=== PATIENT | male | born 1940 | race Hispanic/Latino ===

== ENCOUNTER 2021-10-03 09:07 | Outpatient (CLI) | payer OTHER | END 2021-10-03 09:08 | disposition home or self-care (01) | LOC: HS RAD 09:07 | PROVIDERS: ATTEND Physical Medicine & Rehabilitation | DX: J96.00 Acute respiratory failure, unspecified whether with hypoxia or hypercapnia (principal); I50.9 Heart failure, unspecified; I51.7 Cardiomegaly; J98.8 Other specified respiratory disorders | CPT/HCPCS: 71045 ==

== ENCOUNTER 2021-10-24 09:07 | Inpatient (IN) | payer MEDICARE, SELFPAY ==
[2021-10-24 10:20] LABS: Hemoglobin 11.1 g/dL (14.0-18.0); Mean Corpuscular HGB CONC 31.5 g/dL (32.0-36.0); Mean Corpuscular Hemoglobin 30.8 pg (27.0-31.0); Mean Corpuscular Volume 97.7 fL (78.0-98.0); Mean Platelet Volume 8.5 fL (7.4-10.4); Platelet Count 222 thou/uL (130-400); RBC Distribution Width 16.1 % (11.5-14.5); Red Blood Cell (RBC) Count 3.61 mill/uL (4.70-6.10); White Blood Cell (WBC) Count 19.3 thou/uL (4.8-10.8)
[2021-10-24 10:31] LABS: ALT (SGPT) 33 U/L (8-55); AST (SGOT) 46 U/L (5-34); Albumin 2.6 g/dL (3.4-4.8); Alkaline Phosphatase 401 U/L (40-110); Anion Gap 26 mmol/L (10-20); BUN (Urea Nitrogen) 55 mg/dL (8.4-25.7); Band 1 % (5-11); Bilirubin, Total 0.6 mg/dL (0.2-1.2); Calc. Creatinine Clearance 0 mL/min (70-130); Calcium 7.9 mg/dL (7.8-10.44); Carbon Dioxide 21 mmol/L (23-31); Chloride 93 mmol/L (98-107); Eosinophils 1 % (0-10); Estimated GFR 6; Globulin 2.6 g/dL (2.4-3.5); Glucose 143 mg/dL (83-110); Lipase 13 U/L (8-78); Lymphocytes 4 % (21-51); MDiff Complete? YES; Monocytes 3 % (0-10); Neutrophil 91 % (42-75); Platelet Morphology Comment Appears Adequate; Potassium 4.2 mmol/L (3.5-5.1); Protein, Total 5.2 g/dL (5.8-8.1); RBC Morphology Normal; Sodium 136 mmol/L (136-145)
[2021-10-24 11:20] LABS: CKMB 17.4 ng/mL (0-6.6)
[2021-10-24] MEDS ORDERED: Cefepime 2 GM VIAL ONE (11:45)
[2021-10-24] MEDS ORDERED: Vancomycin 1 GM/200 ML BAG ONE (11:45)
[2021-10-24] MEDS ORDERED: Aspirin Chewable 81 MG TAB ONE (11:45)
[2021-10-24 13:55] LABS: Lactic Acid 2.9 mmol/L (0.5-2.2)
[2021-10-24] MEDS ORDERED: Vancomycin 1 GM in Premix Bag 1 BAG IVPB SCH (18:12)
[2021-10-24] MEDS ORDERED: Acetaminophen 325 MG TAB PO PRN (18:12)
[2021-10-24] MEDS ORDERED: Bisacodyl 5 MG TAB PO PRN (18:12)
[2021-10-24] MEDS ORDERED: Vancomycin Sliding Scale IVPB PRN (18:19)
[2021-10-24 18:33] VITALS: BMI 21.1
[2021-10-24 19:08] LABS: Critical Call Chem Troponin I RESULT DECREASING; Troponin I 0.401 ng/mL (< 0.028)
[2021-10-24] MEDS ORDERED: Cefepime 2 GM in Sodium Chloride 0.9% 100 ML IVPB SCH (21:00)
[2021-10-24] MEDS: Midodrine HCl 5 MG TAB PO SCH (21:14)
[2021-10-24] MEDS: Heparin 5,000 UNITS/ML VIAL SC SCH (21:15)
[2021-10-24] MEDS: Atorvastatin Calcium 10 MG TAB PO SCH (21:15)
[2021-10-24 22:37] LABS: Magnesium 1.7 mg/dL (1.6-2.6)
[2021-10-24] MEDS ORDERED: Magnesium 2 GM/50 ML(in water) 2 GM in Premix Bag 1 BAG IVPB SCH (23:30)
[2021-10-25 05:03] LABS: ALT (SGPT) 29 U/L (8-55); AST (SGOT) 40 U/L (5-34); Albumin 2.3 g/dL (3.4-4.8); Alkaline Phosphatase 299 U/L (40-110); Anion Gap 22 mmol/L (10-20); BUN (Urea Nitrogen) 47 mg/dL (8.4-25.7); Bilirubin, Total 0.4 mg/dL (0.2-1.2); Calc. Creatinine Clearance 7 mL/min (70-130); Calcium 8.5 mg/dL (7.8-10.44); Carbon Dioxide 22 mmol/L (23-31); Chloride 93 mmol/L (98-107); Estimated GFR 7; Globulin 3.1 g/dL (2.4-3.5); Glucose 131 mg/dL (83-110); Potassium 3.4 mmol/L (3.5-5.1); Protein, Total 5.4 g/dL (5.8-8.1); Sodium 134 mmol/L (136-145)
[2021-10-25] MEDS ORDERED: Aspirin 325 mg Enteric Coated Tablet PO SCH (09:00)
[2021-10-25] MEDS: Amiodarone 200 MG TAB PO SCH (09:16)
[2021-10-25] MEDS: Allopurinol 100 MG TAB PO SCH (09:16)
[2021-10-25] MEDS: Finasteride 5 MG TAB PO SCH ×3 (09:16→16:33)
[2021-10-25] MEDS: Calcitriol 0.25 MCG CAP PO SCH (09:17)
[2021-10-25] MEDS: Aspirin Chewable 81 MG TAB PO SCH (09:17)
[2021-10-25] MEDS: Midodrine HCl 5 MG TAB PO SCH ×3 (09:17→21:35)
[2021-10-25] MEDS: Heparin 5,000 UNITS/ML VIAL SC SCH ×3 (09:18→21:36)
[2021-10-25] MEDS: Fludrocortisone Acetate 0.1 MG TAB PO SCH (09:18)
[2021-10-25] MEDS ORDERED: Cefepime 0.5 GM in Admixture Fee 1 EACH IVPB SCH (12:00)
[2021-10-25] MEDS: Cefepime 0.5 GM, Admixture Fee 1 EACH in Sodium Chloride 0.9% 100 ML IVPB SCH (12:13)
[2021-10-25 12:45] LABS: Vancomycin, Random 16.3 ug/mL (See Comment)
[2021-10-25] MEDS ORDERED: Dexamethasone 6 MG in Sodium Chloride 0.9% 50 ML IVPB SCH (14:25)
[2021-10-25] MEDS: Dexamethasone 4 mg/ml Vial SLOW IVP SCH (16:34)
[2021-10-25] MEDS: Atorvastatin Calcium 10 MG TAB PO SCH (21:35)
[2021-10-26 05:15] LABS: Anion Gap 22 mmol/L (10-20); BUN (Urea Nitrogen) 47 mg/dL (8.4-25.7); Calc. Creatinine Clearance 7 mL/min (70-130); Calcium 8.4 mg/dL (7.8-10.44); Carbon Dioxide 23 mmol/L (23-31); Chloride 94 mmol/L (98-107); Estimated GFR 8; Glucose 134 mg/dL (83-110); Potassium 3.7 mmol/L (3.5-5.1); Sodium 135 mmol/L (136-145)
[2021-10-26 05:18] LABS: Band 6 % (5-11); Hemoglobin 11.3 g/dL (14.0-18.0); Hypochromia SLIGHT = 6-15 cells (100X) (0-5/hpf); MDiff Complete? YES; Mean Corpuscular HGB CONC 32.4 g/dL (32.0-36.0); Mean Corpuscular Hemoglobin 31.9 pg (27.0-31.0); Mean Corpuscular Volume 98.7 fL (78.0-98.0); Mean Platelet Volume 8.6 fL (7.4-10.4); Monocytes 18 % (0-10); Neutrophil 76 % (42-75); Platelet Count 238 thou/uL (130-400); Platelet Morphology Comment Appears Adequate; RBC Distribution Width 16.1 % (11.5-14.5); Red Blood Cell (RBC) Count 3.53 mill/uL (4.70-6.10); White Blood Cell (WBC) Count 18.4 thou/uL (4.8-10.8)
[2021-10-26] MEDS: Amiodarone 200 MG TAB PO SCH (09:31)
[2021-10-26] MEDS: Calcitriol 0.25 MCG CAP PO SCH (09:31)
[2021-10-26] MEDS: Allopurinol 100 MG TAB PO SCH (09:31)
[2021-10-26] MEDS: Midodrine HCl 5 MG TAB PO SCH ×3 (09:31→21:43)
[2021-10-26] MEDS: Aspirin Chewable 81 MG TAB PO SCH (09:31)
[2021-10-26] MEDS: Finasteride 5 MG TAB PO SCH ×3 (09:31→17:08)
[2021-10-26] MEDS: Heparin 5,000 UNITS/ML VIAL SC SCH ×3 (09:32→21:43)
[2021-10-26] MEDS: Fludrocortisone Acetate 0.1 MG TAB PO SCH (09:38)
[2021-10-26 10:03] LABS: Vancomycin, Random 13.8 ug/mL (See Comment)
[2021-10-26] MEDS ORDERED: Vancomycin HCl 500 MG in Sodium Chloride 0.9% 100 ML IVPB SCH (11:00)
[2021-10-26] MEDS: Cefepime 0.5 GM, Admixture Fee 1 EACH in Sodium Chloride 0.9% 100 ML IVPB SCH (14:14)
[2021-10-26] MEDS ORDERED: Gabapentin 100 MG CAP PO SCH (14:45)
[2021-10-26] MEDS: Dexamethasone 4 mg/ml Vial SLOW IVP SCH (15:46)
[2021-10-26] MEDS: traMADol HCl 50 MG TAB PO PRN (17:08)
[2021-10-26] MEDS: Atorvastatin Calcium 10 MG TAB PO SCH (21:43)
[2021-10-27 04:52] LABS: Anion Gap 21 mmol/L (10-20); BUN (Urea Nitrogen) 47 mg/dL (8.4-25.7); Calc. Creatinine Clearance 7 mL/min (70-130); Calcium 8.4 mg/dL (7.8-10.44); Carbon Dioxide 24 mmol/L (23-31); Chloride 95 mmol/L (98-107); Estimated GFR 8; Glucose 149 mg/dL (83-110); Potassium 3.4 mmol/L (3.5-5.1); Sodium 137 mmol/L (136-145)
[2021-10-27 05:24] LABS: Anisocytosis SLIGHT = 6-15 cells (100X) (0-5/hpf); Band 1 % (5-11); Hemoglobin 11.4 g/dL (14.0-18.0); Lymphocytes 3 % (21-51); MDiff Complete? YES; Macrocytosis SLIGHT = 6-15 cells (100X) (0-5/hpf); Mean Corpuscular HGB CONC 32.2 g/dL (32.0-36.0); Mean Corpuscular Hemoglobin 32.1 pg (27.0-31.0); Mean Corpuscular Volume 99.5 fL (78.0-98.0); Mean Platelet Volume 8.6 fL (7.4-10.4); Monocytes 7 % (0-10); Neutrophil 89 % (42-75); Ovalocytes SLIGHT = 2-5 cells (100X) (0-1/hpf); Platelet Count 247 thou/uL (130-400); Platelet Morphology Comment Appears Adequate; RBC Distribution Width 16.6 % (11.5-14.5); Red Blood Cell (RBC) Count 3.55 mill/uL (4.70-6.10); White Blood Cell (WBC) Count 17.8 thou/uL (4.8-10.8)
[2021-10-27] MEDS: Finasteride 5 MG TAB PO SCH ×3 (08:36→16:26)
[2021-10-27] MEDS ORDERED: Potassium Chloride 20 MEQ TAB PO SCH (08:45)
[2021-10-27] MEDS: Midodrine HCl 5 MG TAB PO SCH ×3 (09:56→20:54)
[2021-10-27] MEDS: Fludrocortisone Acetate 0.1 MG TAB PO SCH (09:56)
[2021-10-27] MEDS: Amiodarone 200 MG TAB PO SCH (09:56)
[2021-10-27] MEDS: Aspirin Chewable 81 MG TAB PO SCH (09:56)
[2021-10-27] MEDS: Heparin 5,000 UNITS/ML VIAL SC SCH ×3 (09:57→20:54)
[2021-10-27] MEDS: Allopurinol 100 MG TAB PO SCH (09:57)
[2021-10-27] MEDS: Calcitriol 0.25 MCG CAP PO SCH (09:57)
[2021-10-27] MEDS: Gabapentin 100 MG CAP PO SCH (09:57)
[2021-10-27] MEDS: Cefepime 1 GM in Sodium Chloride 0.9% 100 ML IVPB SCH (12:28)
[2021-10-27] MEDS: traMADol HCl 50 MG TAB PO PRN (12:31)
[2021-10-27] MEDS: Dexamethasone 4 mg/ml Vial SLOW IVP SCH (16:27)
[2021-10-27] MEDS: Atorvastatin Calcium 10 MG TAB PO SCH (20:54)
[2021-10-28 05:00] LABS: Anion Gap 22 mmol/L (10-20); BUN (Urea Nitrogen) 56 mg/dL (8.4-25.7); Calc. Creatinine Clearance 7 mL/min (70-130); Calcium 8.1 mg/dL (7.8-10.44); Carbon Dioxide 18 mmol/L (23-31); Chloride 99 mmol/L (98-107); Estimated GFR 7; Glucose 183 mg/dL (83-110); Potassium 4.1 mmol/L (3.5-5.1); Sodium 135 mmol/L (136-145)
[2021-10-28 05:25] LABS: Band 5 % (5-11); Hemoglobin 11.1 g/dL (14.0-18.0); Hypochromia SLIGHT = 6-15 cells (100X) (0-5/hpf); MDiff Complete? YES; Mean Corpuscular HGB CONC 31.4 g/dL (32.0-36.0); Mean Corpuscular Hemoglobin 31.5 pg (27.0-31.0); Mean Platelet Volume 8.9 fL (7.4-10.4); Monocytes 11 % (0-10); Neutrophil 84 % (42-75); Platelet Count 237 thou/uL (130-400); Platelet Morphology Comment Appears Adequate; RBC Distribution Width 16.5 % (11.5-14.5); Red Blood Cell (RBC) Count 3.52 mill/uL (4.70-6.10); White Blood Cell (WBC) Count 19.9 thou/uL (4.8-10.8)
[2021-10-28] MEDS: Finasteride 5 MG TAB PO SCH ×3 (07:37→16:14)
[2021-10-28] MEDS: Heparin 5,000 UNITS/ML VIAL SC SCH ×3 (09:07→21:47)
[2021-10-28] MEDS: Fludrocortisone Acetate 0.1 MG TAB PO SCH (09:07)
[2021-10-28] MEDS: Amiodarone 200 MG TAB PO SCH (09:07)
[2021-10-28] MEDS: Midodrine HCl 5 MG TAB PO SCH ×3 (09:07→21:44)
[2021-10-28] MEDS: Aspirin Chewable 81 MG TAB PO SCH (09:08)
[2021-10-28] MEDS: Allopurinol 100 MG TAB PO SCH (09:08)
[2021-10-28] MEDS: Calcitriol 0.25 MCG CAP PO SCH (09:09)
[2021-10-28] MEDS: Gabapentin 100 MG CAP PO SCH (09:09)
[2021-10-28 09:57] LABS: Vancomycin, Random 17.7 ug/mL (See Comment)
[2021-10-28] MEDS ORDERED: Vancomycin HCl 250 MG in Sodium Chloride 0.9% 100 ML IVPB SCH (11:00)
[2021-10-28] MEDS: Cefepime 1 GM in Sodium Chloride 0.9% 100 ML IVPB SCH (11:43)
[2021-10-28] MEDS: Dexamethasone 4 mg/ml Vial SLOW IVP SCH (14:32)
[2021-10-28] MEDS: traMADol HCl 50 MG TAB PO PRN (16:15)
[2021-10-28] MEDS: Atorvastatin Calcium 10 MG TAB PO SCH (21:47)
[2021-10-29 04:55] LABS: Anion Gap 21 mmol/L (10-20); BUN (Urea Nitrogen) 54 mg/dL (8.4-25.7); Calc. Creatinine Clearance 7 mL/min (70-130); Calcium 8.2 mg/dL (7.8-10.44); Carbon Dioxide 22 mmol/L (23-31); Chloride 95 mmol/L (98-107); Estimated GFR 7; Glucose 157 mg/dL (83-110); Potassium 4.3 mmol/L (3.5-5.1); Sodium 134 mmol/L (136-145)
[2021-10-29 05:02] LABS: Hemoglobin 12.5 g/dL (14.0-18.0); Lymphocytes 4 % (21-51); MDiff Complete? YES; Macrocytosis SLIGHT = 6-15 cells (100X) (0-5/hpf); Mean Corpuscular HGB CONC 32.1 g/dL (32.0-36.0); Mean Corpuscular Hemoglobin 32.2 pg (27.0-31.0); Mean Platelet Volume 8.9 fL (7.4-10.4); Monocytes 9 % (0-10); Myelocyte 1 % (0-0); Neutrophil 86 % (42-75); Ovalocytes SLIGHT = 2-5 cells (100X) (0-1/hpf); Platelet Count 237 thou/uL (130-400); Platelet Morphology Comment Appears Adequate; RBC Distribution Width 16.1 % (11.5-14.5); Red Blood Cell (RBC) Count 3.88 mill/uL (4.70-6.10); Target Cells SLIGHT = 2-5 cells (100X) (0-1/hpf); Tear Drops SLIGHT = 2-5 cells (100X) (0-1/hpf); White Blood Cell (WBC) Count 17.2 thou/uL (4.8-10.8)
[2021-10-29 05:21] LABS: Free Thyroxine Index 1.54 (1.4-3.1); T4 3.7 ug/dL (4.87-11.72); Thyroid Stimulating Hormone 1.3266 uIU/mL (0.35-4.94)
[2021-10-29] MEDS: Fludrocortisone Acetate 0.1 MG TAB PO SCH (08:59)
[2021-10-29] MEDS: Heparin 5,000 UNITS/ML VIAL SC SCH ×3 (08:59→21:05)
[2021-10-29] MEDS: Amiodarone 200 MG TAB PO SCH (08:59)
[2021-10-29] MEDS ORDERED: Gabapentin 100 MG CAP PO SCH (09:00)
[2021-10-29] MEDS: Allopurinol 100 MG TAB PO SCH (11:51)
[2021-10-29] MEDS: Aspirin Chewable 81 MG TAB PO SCH (11:52)
[2021-10-29] MEDS: Midodrine HCl 5 MG TAB PO SCH ×3 (11:52→21:01)
[2021-10-29] MEDS: Calcitriol 0.25 MCG CAP PO SCH (11:53)
[2021-10-29] MEDS: Finasteride 5 MG TAB PO SCH (11:53)
[2021-10-29] MEDS: Cefepime 1 GM in Sodium Chloride 0.9% 100 ML IVPB SCH (12:51)
[2021-10-29] MEDS ORDERED: levETIRAcetam 500 MG TAB PO SCH ×2 (14:30→21:00)
[2021-10-29] MEDS: Dexamethasone 4 mg/ml Vial SLOW IVP SCH (15:26)
[2021-10-29] MEDS: Atorvastatin Calcium 10 MG TAB PO SCH (21:06)
[2021-10-29] MEDS ORDERED: Acetaminophen 650 MG Suppository PR PRN (21:53)
[2021-10-30 03:30] VITALS: BP 118/51; TEMP 98.6
[2021-10-30 06:36] LABS: Hemoglobin 12.3 g/dL (14.0-18.0); Mean Corpuscular HGB CONC 29.9 g/dL (32.0-36.0); Mean Corpuscular Hemoglobin 30.6 pg (27.0-31.0); Platelet Count 207 thou/uL (130-400); RBC Distribution Width 16.6 % (11.5-14.5); Red Blood Cell (RBC) Count 4.02 mill/uL (4.70-6.10); White Blood Cell (WBC) Count 20.4 thou/uL (4.8-10.8)
[2021-10-30 06:46] LABS: Anion Gap 27 mmol/L (10-20); BUN (Urea Nitrogen) 78 mg/dL (8.4-25.7); Calc. Creatinine Clearance 6 mL/min (70-130); Carbon Dioxide 15 mmol/L (23-31); Chloride 98 mmol/L (98-107); Estimated GFR 6; Glucose 111 mg/dL (83-110); Potassium 6.3 mmol/L (3.5-5.1); Sodium 134 mmol/L (136-145)
[2021-10-30 10:49] LABS: Band 5 % (5-11); Lymphocytes 6 % (21-51); MDiff Complete? YES; Metamyelocyte 2 % (0-0); Monocytes 2 % (0-10); Myelocyte 3 % (0-0); Neutrophil 82 % (42-75); Nucleated RBC 2 % (0); Platelet Morphology Comment Appears Adequate; Polychromasia SLIGHT = 2-3 cells (100X) (0-2/hpf)
== END 2021-10-30 09:33 | disposition expired | DRG 871 ==
LOC: ERS 09:07 → ERHOLD 11:55 → 2NO 15:22
PROVIDERS: ADMIT Family Medicine; ATTEND Family Medicine
PROC: 3E03329 Introduction of Other Anti-infective into Peripheral Vein, Percutaneous Approach (ICD-10-PCS; principal; 2021-10-24)
PROC: 8E0ZXY6 Isolation (ICD-10-PCS; 2021-10-24)
PROC: 5A1D70Z Performance of Urinary Filtration, Intermittent, Less than 6 Hours Per Day (ICD-10-PCS; 2021-10-24)
DX: A41.89 Other specified sepsis (principal); J18.9 Pneumonia, unspecified organism; N18.6 End stage renal disease; U07.1 COVID-19; I13.2 Hypertensive heart and chronic kidney disease with heart failure and with stage 5 chronic kidney disease, or end stage renal disease; N25.81 Secondary hyperparathyroidism of renal origin; E87.2 Acidosis; I24.8 Other forms of acute ischemic heart disease; I50.32 Chronic diastolic (congestive) heart failure; Z66 Do not resuscitate; I25.10 Atherosclerotic heart disease of native coronary artery without angina pectoris; I35.0 Nonrheumatic aortic (valve) stenosis; I73.9 Peripheral vascular disease, unspecified; K20.90 Esophagitis, unspecified without bleeding; K63.5 Polyp of colon; R19.7 Diarrhea, unspecified; I48.0 Paroxysmal atrial fibrillation; N40.0 Benign prostatic hyperplasia without lower urinary tract symptoms; R63.4 Abnormal weight loss; R62.7 Adult failure to thrive; R25.1 Tremor, unspecified; E87.6 Hypokalemia; Z79.51 Long term (current) use of inhaled steroids; Z95.5 Presence of coronary angioplasty implant and graft; Z95.1 Presence of aortocoronary bypass graft; Z99.2 Dependence on renal dialysis; Z79.899 Other long term (current) drug therapy; Z87.891 Personal history of nicotine dependence; Z68.21 Body mass index [BMI] 21.0-21.9, adult; D63.1 Anemia in chronic kidney disease; Z95.2 Presence of prosthetic heart valve; Z95.0 Presence of cardiac pacemaker
CPT/HCPCS: 36415; 71045; 71275; 80048; 80053; 80202; 82553; 82607; 83605; 83690; 83735; 83880; 84146; 84436; 84443; 84479; 84484; 85025; 87040; 87804; 90945; 93005; 93010; 93306; 93923; 96374; 96375; 97139; G0257; J0692; J1100; J1644; J3370; J3475; J3490; U0003; U0005